=== PATIENT | male | born 1980 | race Hispanic/Latino ===

== ENCOUNTER 2017-05-16 21:20 | Emergency (ER) | payer SELFPAY ==
[2017-05-16 21:26] VITALS: BP 161/99
[2017-05-17] MEDS ORDERED: LIDOCAINE VISCOUS 2% PO ONE
[2017-05-17] MEDS ORDERED: PEPCID PO ONE
[2017-05-17] MEDS ORDERED: ALUM-MAG HYDROX-SIMETH 200-200-20MG/5ML PO ONE
--- NOTE | 2017-05-17 00:03 | Emergency Department Report ---
ED ENT HPI - General Chief complaint: Sore Throat Stated complaint: FEELS LIKE SOMETHING IS IN THROAT Time Seen by Provider: 05/16/17 23:59 Source: patient Mode of arrival: Ambulatory Limitations: No Limitations - History of Present Illness Initial comments: 36-year-old male past medical history acid reflux, lumbar spinal fusion, anxiety presents with complaint of 3 months of foreign body sensation in throat. Patient denies any difficulty swallowing exhibits no trismus no stridor no drooling fully lucid no audible wheezing or stridor on exam speaking in full sentences. Denies nausea vomiting fever or chills or cough. Denies any difficulty swallowing solids or liquids. Awake alert and oriented 3. Patient states that pain is intermittent achy and it is more of a scratchy sensation in anything else. It is not currently bothering him at this time. Patient states that he also thinks this may be his acid reflux versus his seasonal allergies which can be associated with sensation of postnasal drip and scratchy throat. Patient states he has a severe hypochondriac and came for evaluation because he researched chronic throat discomfort on the Internet and is concerned he has throat cancer and wanted to discuss this with a medical professional. Patient denies using any drugs whatsoever denies smoking denies drinking alcohol except on occasion denies chewing tobacco. Denies any personal family history of throat lung or esophageal cancer in any first-degree relatives. MD complaint: sore throat Onset/Timin -: month(s) Severity: mild Severity scale (0 -10): 1 Quality: aching Improves with: none Worsens with: none - Related Data Previous Rx's Medication Instructions Recorded Last Taken Type Cetirizine HCl [ZyrTEC] 10 mg PO QDAY PRN #1 bottle 05/17/17 Unknown Rx Dextromethorphan/Benzocaine 1 each PO Q4H PRN #1 box 05/17/17 Unknown Rx [Cepacol Sorethroat-Cough Bridget] Famotidine [Pepcid] 20 mg PO BID PRN #1 box 05/17/17 Unknown Rx Allergies Allergy/AdvReac Type Severity Reaction Status Date / Time No Known Allergies Allergy Unverified 05/16/17 21:24 ED Dental HPI - General Chief complaint: Sore Throat Stated complaint: FEELS LIKE SOMETHING IS IN THROAT Time Seen by Provider: 05/16/17 23:59 Source: patient Mode of arrival: Ambulatory Limitations: No Limitations - Related Data Previous Rx's Medication Instructions Recorded Last Taken Type Cetirizine HCl [ZyrTEC] 10 mg PO QDAY PRN #1 bottle 05/17/17 Unknown Rx Dextromethorphan/Benzocaine 1 each PO Q4H PRN #1 box 05/17/17 Unknown Rx [Cepacol Sorethroat-Cough Bridget] Famotidine [Pepcid] 20 mg PO BID PRN #1 box 05/17/17 Unknown Rx Allergies Allergy/AdvReac Type Severity Reaction Status Date / Time No Known Allergies Allergy Unverified 05/16/17 21:24 ED Review of Systems ROS: Stated complaint: FEELS LIKE SOMETHING IS IN THROAT Other details as noted in HPI Constitutional: denies: chills, fever Eyes: denies: eye pain, eye discharge, vision change ENT: as per HPI (slight throat discomfort consistent with history of GERD and allergic rhinitis). denies: ear pain, throat pain Respiratory: denies: cough, shortness of breath, wheezing Cardiovascular: denies: chest pain, palpitations Endocrine: no symptoms reported Gastrointestinal: denies: abdominal pain, nausea, diarrhea Genitourinary: denies: urgency, dysuria Musculoskeletal: denies: back pain, joint swelling, arthralgia Skin: denies: rash, lesions Neurological: denies: headache, weakness, paresthesias Psychiatric: denies: anxiety, depression Hematological/Lymphatic: denies: easy bleeding, easy bruising ED Past Medical Hx - Past Medical History Hx Psychiatric Treatment: Yes (anxiety) - Surgical History Additional Surgical History: back fusion - Medications Home Medications: Home Medications Medication Instructions Recorded Confirmed Last Taken Type Cetirizine HCl [ZyrTEC] 10 mg PO QDAY PRN #1 bottle 05/17/17 Unknown Rx Dextromethorphan/Benzocaine 1 each PO Q4H PRN #1 box 05/17/17 Unknown Rx [Cepacol Sorethroat-Cough Bridget] Famotidine [Pepcid] 20 mg PO BID PRN #1 box 05/17/17 Unknown Rx ED Physical Exam - General Limitations: No Limitations General appearance: alert, in no apparent distress - Head Head exam: Present: atraumatic, normocephalic - Eye Eye exam: Present: normal appearance, PERRL, EOMI - ENT ENT exam: Present: mucous membranes moist - Expanded ENT Exam Expanded Mouth exam: Present: normal external inspection Teeth exam: Present: normal inspection Throat exam: Positive: normal inspection (no peritonsillar abscess no exudates no tonsillar exudates uvula is midline no visible peritonsillar abscess no anterior cervical adenopathy) - Neck Neck exam: Present: normal inspection, full ROM (range of motion neck flexion and extension fully intact) - Respiratory Respiratory exam: Present: normal lung sounds bilaterally (lungs clear to auscultation bilaterally). Absent: respiratory distress - Cardiovascular Cardiovascular Exam: Present: regular rate, normal rhythm. Absent: systolic murmur, diastolic murmur, rubs, gallop - GI/Abdominal GI/Abdominal exam: Present: soft, normal bowel sounds - Rectal Rectal exam: Present: deferred - Extremities Exam Extremities exam: Present: normal inspection - Back Exam Back exam: Present: normal inspection - Neurological Exam Neurological exam: Present: alert, oriented X3 - Psychiatric Psychiatric exam: Present: normal affect, normal mood - Skin Skin exam: Present: warm, dry, intact, normal color. Absent: rash ED Course Vital Signs 05/16/17 21:24 Temperature 97.6 F Pulse Rate 92 H Respiratory 18 Rate Blood Pressure 161/99 O2 Sat by Pulse 100 Oximetry ED Medical Decision Making - Medical Decision Making A/P: Possible postnasal drip vs esophagitis versus GERD versus symptoms of anxiety, asymptomatic hypertension 1-no clinical signs of infection, CENTOR Criteria 1 point 5% - 10% likelihood of strep No further testing nor antibiotics. [email or web address] 2-x-ray soft tissue neck unremarkable, patient tolerating by mouth food and fluid without difficulty, vital signs stable before discharge, no wheezing no stridor noted on exam. This could be manifestation of patient's anxiety attacks as he states he does often get sensation of lump in his throat and often has anxiety attacks. Patient also has long-standing GERD and seasonal allergies will give patient symptomatic treatment for both. 3-Zyrtec when necessary, throat lozenges when necessary, will add Pepcid when necessary's patient's current regimen patient currently on Prevacid 4-follow-up with primary care and see an outpatient GI. Patient is concerned he may be developing an ulcer secondary to his chronic GERD 5- patient denies any chest pain palpitations diaphoresis shortness of breath dyspnea or dyspnea on exertion. No clinical signs of angina or cardiac/ pleuritic chest pain on history and physical exam 6- patient has no clinical signs of hypertension no chest pain no palpitations no shortness of breath no nausea no vomiting no paresthesias no blurred vision no headache. I advised patient to follow up with primary care Critical care attestation.: If time is entered above; I have spent that time in minutes in the direct care of this critically ill patient, excluding procedure time. ED Disposition Clinical Impression: Worried well, Foreign body sensation in throat Disposition: - TO HOME OR SELFCARE Is pt being admited?: No Does the pt Need Aspirin: No Condition: Stable Instructions: Gastroesophageal Reflux Disease (ED), Diet for Ulcers and Gastritis (ED), Allergic Rhinitis (ED) Prescriptions: Cetirizine HCl [ZyrTEC] 10 mg PO QDAY PRN #1 bottle PRN Reason: Congestion Dextromethorphan/Benzocaine [Cepacol Sorethroat-Cough Bridget] 1 each PO Q4H PRN #1 box PRN Reason: Sore Throat Famotidine [Pepcid] 20 mg PO BID PRN #1 box PRN Reason: Indigestion Referrals: BURKE EMMANUEL MD [Staff Physician] - 3-5 Days [facility] [Provider Group] - [facility] [Provider Group] - 3-5 Days [facility] [Provider Group] - 3-5 Days [facility] [Provider Group] - 3-5 Days [facility] [Outside] - 3-5 Days Forms: Work/School Release Form(ED) Time of Disposition: 00:57
--- NOTE | 2017-05-17 00:47 | XRay Report ---
FINAL REPORT EXAM: XR NECK SOFT TISSUE HISTORY: FB sensation throat for months TECHNIQUE: AP and lateral views of the soft tissues of the neck was obtained. FINDINGS: The epiglottis and subglottic airway appear normal. The hypopharynx appears normal. The prevertebral soft tissues appear normal. There is no evidence of radiopaque foreign body. IMPRESSION: Within normal limits.
== END 2017-05-17 01:20 | disposition home or self-care (01) ==
LOC: ED 21:20
DX: R09.89 Other specified symptoms and signs involving the circulatory and respiratory systems (principal); F41.9 Anxiety disorder, unspecified; K21.9 Gastro-esophageal reflux disease without esophagitis
CPT/HCPCS: 70360; 99283